=== PATIENT | female | born 1965 | race Two or more races ===

== ENCOUNTER 2022-05-17 07:00 | Day surgery (SDC) | payer OTHER | END 2022-05-17 11:20 | disposition home or self-care (01) | LOC: AMB-ENDOS 07:00 | PROVIDERS: ATTEND Surgery | DX: D12.5 Benign neoplasm of sigmoid colon (principal); K57.30 Diverticulosis of large intestine without perforation or abscess without bleeding; Z20.822 Contact with and (suspected) exposure to COVID-19; E03.9 Hypothyroidism, unspecified; E78.5 Hyperlipidemia, unspecified; I10 Essential (primary) hypertension; M79.7 Fibromyalgia ==

== ENCOUNTER 2023-02-23 11:41 | Inpatient (IN) | payer OTHER ==
[~2023-02-23] VITALS: Ht 162.6 cm; Wt 56.7 kg
[2023-02-24] MEDS ORDERED: ZESTRIL40 M1 PO (15:30)
[2023-02-24] MEDS ORDERED: SYNTHROID112 MCG PO (15:30)
[2023-02-24] MEDS ORDERED: LYRICA50 MG PO (15:31)
[2023-02-24] MEDS ORDERED: ESTRACE0.5 MG PO (15:31)
[2023-02-24] MEDS ORDERED: PEPCID40 MG PO (15:31)
[2023-02-24] MEDS ORDERED: CLONAZEPAM1 MG PO (15:32)
[2023-02-24] MEDS ORDERED: TRICOR145 MG PO (15:32)
[2023-02-24] MEDS ORDERED: TRINTELLIX10 MG PO (15:33)
[2023-02-28] MEDS ORDERED: AZELASTINE137 MCG/0. (13:00)
[2023-02-28] MEDS ORDERED: NORVASC2.5 MG (13:00)
[2023-02-28] MEDS ORDERED: LEVOCETIRIZINE D5 MG (13:00)
[2023-02-28] MEDS ORDERED: MOMETASONE FURO17 GM (13:00)
[2023-02-28] MEDS ORDERED: OMEPRAZOLE40 MG (13:00)
[2023-03-03] MEDS ORDERED: PEPCID AC20 MG PO (10:21)
[2023-03-03] MEDS ORDERED: LEVSIN/SL0.125 MG SL (10:22)
[2023-03-03] MEDS ORDERED: INTESTINEX680 M1 PO (10:22)
[2023-03-03] MEDS ORDERED: TRAM1TAB98 PO (10:22)
== END 2023-03-03 13:13 | disposition home or self-care (01) | DRG 331 ==
LOC: SURH 02-28 08:45 → O/R 02-28 09:19 → SURG 02-28 09:19 → SURH 02-28 11:45 → SURG 02-28 16:14
PROVIDERS: ADMIT Surgery; ATTEND Surgery
PROC: 0DBP4ZZ Excision of Rectum, Percutaneous Endoscopic Approach (ICD-10-PCS; 2023-02-28)
PROC: 0DJD8ZZ Inspection of Lower Intestinal Tract, Via Natural or Artificial Opening Endoscopic (ICD-10-PCS; 2023-02-28)
PROC: 0DTN4ZZ Resection of Sigmoid Colon, Percutaneous Endoscopic Approach (ICD-10-PCS; principal; 2023-02-28 08:45)
DX: K57.20 Diverticulitis of large intestine with perforation and abscess without bleeding (principal); R10.12 Left upper quadrant pain; I10 Essential (primary) hypertension; N73.6 Female pelvic peritoneal adhesions (postinfective); N99.4 Postprocedural pelvic peritoneal adhesions

== ENCOUNTER 2023-03-21 20:43 | Inpatient (IN) | payer OTHER ==
[~2023-03-21] VITALS: Ht 162.6 cm; Wt 54.4 kg
[~2023-03-21 20:43] MED LIST: AZELASTINE137 MCG/0.; CLONAZEPAM1 MG PO; ESTRACE0.5 MG PO; INTESTINEX680 M1 PO; LEVOCETIRIZINE D5 MG; LEVSIN/SL0.125 MG SL; LYRICA50 MG PO; MOMETASONE FURO17 GM; NORVASC2.5 MG; OMEPRAZOLE40 MG; PEPCID AC20 MG PO; PEPCID40 MG PO; SYNTHROID112 MCG PO; TRAM1TAB98 PO; TRICOR145 MG PO; TRINTELLIX10 MG PO; ZESTRIL40 M1 PO
[2023-03-21] MEDS ORDERED: LYRICA50 MG (20:52)
[2023-03-23] MEDS ORDERED: OMEPRAZOLE40 MG (16:24)
[2023-03-23] MEDS ORDERED: ESTRADIOL2 MG (16:24)
[2023-03-23] MEDS ORDERED: AZELASTINE137 MCG/0. (16:24)
[2023-03-23] MEDS ORDERED: MOMETASONE FURO17 GM (16:24)
[2023-03-23] MEDS ORDERED: NORVASC2.5 MG (16:24)
[2023-03-23] MEDS ORDERED: TRINTELLIX10 MG (16:24)
[2023-04-02] MEDS ORDERED: HYOSCYAMINE0.125 M1 SL (11:09)
[2023-04-02] MEDS ORDERED: INTESTINEX680 M1 PO (11:12)
[2023-04-02] MEDS ORDERED: MIRALAX17 GM PO (11:12)
[2023-04-02] MEDS ORDERED: PAIN RELIEVER500 MG PO (11:12)
== END 2023-04-02 14:43 | disposition home or self-care (01) | DRG 336 ==
LOC: ER 20:43 → SURH 23:02
PROVIDERS: ADMIT Surgery; ATTEND Surgery
PROC: 0DNW4ZZ Release Peritoneum, Percutaneous Endoscopic Approach (ICD-10-PCS; principal; 2023-04-02)
PROC: 0DNU4ZZ Release Omentum, Percutaneous Endoscopic Approach (ICD-10-PCS; 2023-04-02)
DX: K91.31 Postprocedural partial intestinal obstruction (principal); K45.0 Other specified abdominal hernia with obstruction, without gangrene; K66.0 Peritoneal adhesions (postprocedural) (postinfection); I10 Essential (primary) hypertension; E03.9 Hypothyroidism, unspecified; Z90.49 Acquired absence of other specified parts of digestive tract